=== PATIENT | male | born 1960 | race Caucasian/White ===

== ENCOUNTER → 2016-09-25 | Outpatient (CLI) | payer BC ==
[~2016-09-25] MED LIST: CARV25TA2 PO; DIGO0.1267 PO; FURO40TA3 PO; LOSA100T65 PO; SPIR50TA3 PO; WARF2.5T8 PO; WARF5TAB7 PO
[2016-09-25 17:36] LABS: HEMATOCRIT 40.3 % (42-52); MEAN CELL VOLUME 87.6 fL (80-100); MEAN CORPUSCULAR HEMOGLOBIN 31.3 pg (25-34); MEAN CORPUSCULAR HGB CONC 35.7 g/dl (32-36); MEAN PLATELET VOLUME 10.7 fL (7.4-10.4); PLATELET COUNT 254 K/uL (130-400); WHITE BLOOD COUNT 5.98 K/uL (4.8-10.8)
[2016-09-25 17:49] LABS: BLOOD UREA NITROGEN 17 mg/dl (7-18); BUN/CREATININE RATIO 19.2 (10-20); CALCIUM 8.2 mg/dl (8.5-10.1); CARBON DIOXIDE 23 mmol/L (21-32); CHLORIDE 105 mmol/L (98-107); CREATININE 0.87 mg/dl (0.60-1.40); GLUCOSE 98 mg/dl (70-99); POTASSIUM 4.2 mmol/L (3.5-5.1); SODIUM 138 mmol/L (136-145)
== END | disposition home or self-care (01) ==
LOC: C.LABBFT 12:21
PROVIDERS: ATTEND Internal Medicine Cardiovascular Disease
DX: I42.9 Cardiomyopathy, unspecified (principal); Z79.01 Long term (current) use of anticoagulants; I48.0 Paroxysmal atrial fibrillation; I50.22 Chronic systolic (congestive) heart failure

== ENCOUNTER → 2016-10-11 | Outpatient (CLI) | payer BC ==
[2016-10-11 12:44] LABS: BLOOD UREA NITROGEN 25 mg/dl (7-18); BUN/CREATININE RATIO 24.9 (10-20); CALCIUM 8.6 mg/dl (8.5-10.1); CARBON DIOXIDE 27 mmol/L (21-32); CHLORIDE 100 mmol/L (98-107); GLUCOSE 101 mg/dl (70-99); POTASSIUM 4.2 mmol/L (3.5-5.1); SODIUM 134 mmol/L (136-145)
== END | disposition home or self-care (01) ==
LOC: C.LABBFT 10:21
PROVIDERS: ATTEND Internal Medicine Cardiovascular Disease
DX: I42.9 Cardiomyopathy, unspecified (principal); I47.2 Ventricular tachycardia; Z79.01 Long term (current) use of anticoagulants; I50.22 Chronic systolic (congestive) heart failure

== ENCOUNTER → 2017-01-20 | Outpatient (CLI) | payer BC ==
[2017-01-20 12:51] LABS: HEMATOCRIT 44.5 % (42-52); MEAN CELL VOLUME 88.5 fL (80-100); MEAN CORPUSCULAR HEMOGLOBIN 31.4 pg (25-34); MEAN CORPUSCULAR HGB CONC 35.5 g/dl (32-36); MEAN PLATELET VOLUME 10.8 fL (7.4-10.4); PLATELET COUNT 255 K/uL (130-400); RED BLOOD COUNT 5.03 M/uL (4.7-6.1)
[2017-01-20 13:04] LABS: CALCIUM 8.8 mg/dl (8.5-10.1)
[2017-01-20 13:05] LABS: BLOOD UREA NITROGEN 18 mg/dl (7-18); CARBON DIOXIDE 28 mmol/L (21-32); CHLORIDE 104 mmol/L (98-107); CREATININE 0.97 mg/dl (0.60-1.40); GLUCOSE 101 mg/dl (70-99); POTASSIUM 4.1 mmol/L (3.5-5.1); SODIUM 139 mmol/L (136-145)
== END | disposition home or self-care (01) ==
LOC: C.LAB 10:02
PROVIDERS: ATTEND Internal Medicine Cardiovascular Disease
DX: I42.9 Cardiomyopathy, unspecified (principal); I47.2 Ventricular tachycardia; I50.22 Chronic systolic (congestive) heart failure; Z79.01 Long term (current) use of anticoagulants

== ENCOUNTER → 2017-04-10 | Outpatient (CLI) | payer BC ==
[2017-04-10 13:24] LABS: BLOOD UREA NITROGEN 21 mg/dl (7-18); BUN/CREATININE RATIO 20.5 (10-20); CALCIUM 8.2 mg/dl (8.5-10.1); CARBON DIOXIDE 26 mmol/L (21-32); CHLORIDE 106 mmol/L (98-107); GLUCOSE 99 mg/dl (70-99); POTASSIUM 4.5 mmol/L (3.5-5.1); SODIUM 137 mmol/L (136-145)
== END | disposition home or self-care (01) ==
LOC: C.LABBFT 07:47
PROVIDERS: ATTEND Internal Medicine Cardiovascular Disease
DX: Z79.01 Long term (current) use of anticoagulants (principal); I48.0 Paroxysmal atrial fibrillation

== ENCOUNTER → 2017-05-20 | Outpatient (CLI) | payer BC ==
[~2017-05-20] VITALS: Ht 174 cm; Wt 82.0 kg
[2017-05-20 16:34] VITALS: BP 98/68; PULSE 69; Ht 174 cm; Wt 82.0 kg
== END | disposition home or self-care (01) ==
LOC: C.NEUR 14:55
PROVIDERS: ATTEND Internal Medicine Pulmonary Disease
DX: G47.00 Insomnia, unspecified (principal); G47.9 Sleep disorder, unspecified; I48.0 Paroxysmal atrial fibrillation; I50.22 Chronic systolic (congestive) heart failure; I42.9 Cardiomyopathy, unspecified

== ENCOUNTER → 2017-06-10 | Outpatient (CLI) | payer BC ==
--- NOTE | 2017-06-11 06:51 | PAP/PSG TECHNICIAN REPORT ---
[facility] Survey Technologist Polysomnogram Report Study name: None Report date: 06/11/2017 Study date: 06/10/2017 Referring Physician: DR. PADRON Name: INDER LOO Interpreting Physician: Taurus Padron M.D. Date of : 1960 Survey Technologist: Jake Huff RPSGT. 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 HE ALSO HAS A DEFIBRILLATOR. HE IS HERE TODAY FOR AN EVALUATION FOR [facility]. ESS = 19 RM 8 Parameters Monitored NPSG: E1-M2, E2-M1, Fp1-M2, Fp2-M1, F3-M2, F4-M2, F4-M1, C3-M2, C4-M2, C4-M1, O1-M2, O2-M2, O2-M1, T3-M2, T4-M1, P3-M2, P4-M1, CHIN1, CHIN2, HR, EKG, Legs, PFLOW, SNOR, FLOW, CFLOW, Tidal Volume, THOR, ABDO, SpO2, PLTH, CPRESS, ETCO2 Wave, ETCO2, pH Sleep Architecture Sleep Stages Time at Lights Off 9:32:01 PM STAGES Time (min.) TST (%) Time at Lights On 5:22:01 AM Wake 52.5 -- Total Recording Time (TRT) 470.50 min. N1 23.0 6 Total Sleep Period (TSP) 457.5 min. N2 330.5 79 Total Sleep Time (TST) 417.5min. N3 7.0 2 Awake Time 53.0 min. REM 57.0 14 Wake after Sleep Onset 40.5 min. Sleep Efficiency (SE) 89 % Sleep Onset Latency (NHUNG) 12.0 min. Number of Stage 1 Shifts None Awakenings 18 Stage Changes 84 Number of REM periods 5 REM 57.0 14 REM Latency 184.0 min. NREM 360.5 86 Body Position Analysis Supine Right Left Side Prone Vertical Total Sleep Time (min.) 93.7 172.9 145.5 318.39 33.6 0.0 Total Sleep Time (%) 18% 41% 35% 76 6% N/A% Total Sleep Time REM (min.) 0.0 53.0 4.0 None 0.0 0.0 Total Sleep Time NREM (min.) 75.8 119.9 141.5 None 23.4 0.0 Intermittent Wake (min.) 18.0 16.8 7.5 None 10.3 0.0 Total Sleep Period (%) 18% None None None None None Arousals Myoclonus (PLM) * Events Count Index Events Count Index Spontaneous 23 3 Events Awake (PLMW) 107 122.3 Respiratory 7 1.0 Events Asleep w/ Arousal (PLMA) 42 6.0 PLM 41 6 Events Asleep w/o Arousal (PLMS) 376 54.0 Snoring 5 1 Total Asleep 418 60.1 Total 76 11 Total 525 67 Respiratory Analysis * CA OA MA CH H RERA Total Count 2 0 3 0 23 1 28 Index 0.3 0.0 0.4 0 3.3 0 4.2 Mean Duration 16.0 0.0 20.6 0.00 17.5 15.7 17.6 Longest Duration 20.1 0.0 26.1 0.00 26.1 15.7 31.2 Respiratory Event Summary Total Supine ~Supine Right Left Prone REM NREM Apneas Count 5 1 4 2 2 0 1 4 Index 0.7 1 1 0.7 0.8 0 1 1 Hypopneas (4% Desat) Count 23 13 10 6 4 0 2 21 Index 3.3 10.3 2 2.1 1.6 0.0 2.1 3.5 Apneas & All Hypopneas Count 28 14 14 8 6 0 3 25 Index 4.0 11 2 3 2 0 3.2 4.2 Respiratory Events (Billboard Installer+All Hyp+RERA) Count 28 15 14 8 6 0 3 25 Index 4.2 12 2 2.8 2.5 0.0 3.2 4.3 Respiratory Related Arousal Count 7 15 3 2 1 0 0 7 Index 1.0 3 1 1 0 0 0 1 Snoring Analysis Supine Right Left Prone REM NREM Total Snore duration 2.5 min Snores count 5 22 17 0 4 40 44 Snore mean duration 3.4 Sec Snores index 4 8 7 0 4.2 6.7 6.3 TST with snoring (%) 0.6% Desaturation Event Summary: Minimum %SpO2 Event Count Mean/Min/Max Duration(sec.) Desaturation Index % Time In Bed > 90 32 24.9 / 8.5 / 62.3 4.2 98.1 86 - 90 0 N/A 0.0 1.9 81 - 85 0 N/A 0.0 0.0 76 - 80 0 N/A 0.0 0.0 71 - 75 0 N/A 0.0 0.0 66 - 70 0 N/A 0.0 0.0 61 - 65 0 N/A 0.0 0.0 56 - 60 0 N/A 0.0 0.0 51 - 55 0 N/A 0.0 0.0 < 50 0 N/A 0.0 0.0 Total REM NREM Awake <50% 0.0 min. 0.0 min. 0.0 min. 0.0 min. 51 - 60% 0.0 min. 0.0 min. 0.0 min. 0.0 min. 61 - 70% 0.0 min. 0.0 min. 0.0 min. 0.0 min. 71 - 80% 0.0 min. 0.0 min. 0.0 min. 0.0 min. 81 - 90% 9.1 min. 0.2 min. 6.6 min. 2.3 min. 91 - 100% 459.6 min. 56.8 min. 353.9 min. 49.0 min. Average 93 94 93 93 Minimum SpO2 87 90 87 87 Desaturation Event Index 4.1 2.1 4.2 8.0 # Desat. Events below 89% 6 N/A 5 1 Time(%) with Saturation below 89% 0.2 0.0 0.1 0.1 Time(min.) with Saturation below 89% 0.8 0.0 0.5 0.3 Time (mins) REM (mins) NREM (mins) % of TST SpO2 Below 90% 21 1 N20 0.3 SpO2 Below 88% 2 0 0 0 Heart Rate Analysis Min (bpm) Max (bpm) Average (bpm) Awake 59 300 63 NREM 59 70 60 REM 59 73 60 Overall 59 73 60 Supplemental O2 Values Minimum O2 level: None Value Start Time End Time Survey Technologist Comments Mr. Loo slept in the right, left, supine and prone positions. PVC's noted. PLM's noted. No bruxism noted. Snoring was noted and scored as a 1 on a scale of 1 through 5. (0=no snoring, 5=snoring loud enough to be heard through a closed door or down the leung way) Mr. Loo awoke to use the restroom 0 times during the night. Mr. Loo stated I slept as well as I do when I am in my own bed. The final report will be interpreted and signed by a sleep physician. The completed physician report will then be placed in the patient medical record. Therapy (cm H2O) 0 TIB (min.) 470.0 TST (min.) 417.5 Sleep Onset (min.) 12.0 REM Onset From Sleep (min.) 184.0 Sleep Efficiency % 89 Wakefulness (%) 11 Wakefulness (min.) 53.0 NREM 1 (%) 6 NREM 1 (min.) 23.0 NREM 2 (%) 79 NREM 2 (min.) 330.5 NREM 3 (%) 2 NREM 3 (min.) 7.0 REM (%) 14 REM (min.) 57.0 # Arousals 76 Arousal Index 11 # Snore 44 Snore Index 6.3 AHI 4.0 AHI Supine 11 AHI Non-Supine 2 NREM AHI 4.2 REM AHI 3.2 RDI 4.2 # Obstructive Apnea 0 # Central Apnea 2 # Mixed Apnea 3 # Hypopneas 23 RERAs 1 Total Respiratory Events 33 Time Below SpO2 89% (min.) 0.5 Mean NREM SpO2 (%) 93 Mean REM SpO2 (%) 94 Mean Sleep SpO2 (%) 93 Min NREM SpO2 (%) 87 Min REM SpO2 (%) 90 Position Supine (min.) 93.7 Position Non-supine (min.) 341.7 LM Index Sleep 60.1 LM Index NREM 65.7 LM Index REM 24.2 Mean Heart Rate (bpm) 60 Min Heart Rate (bpm) 59
--- NOTE | 2017-06-12 15:17 | POLYSOMNOGRAPH REPORT ---
CLINICAL DATA: A 57-year-old male with BMI of 27.[address] Linton and myself for evaluation for possible sleep apnea. He has frequent nocturnal awakenings, insomnia, and fatigue. His Spring sleepiness score is 19/24. SLEEP ARCHITECTURE: Total sleep period was 457.5 minutes. Total sleep time was 417.5 minutes divided between 360.5 minutes of non-REM sleep and 57 minutes of REM sleep. Sleep onset latency was 12 minutes. REM latency was delayed at 184 minutes. Sleep efficiency was 89%. Wake after sleep onset was 40.5 minutes. Sleep consisted of stage N1 6%, stage N2 79%, stage N3 2%, and REM 14%. AROUSAL DATA: 76 arousals recorded for an index of 11 per hour. 41 were due PLM events. PLM DATA: Severe PLMD was noted. There were 418 limb movements during sleep noted for an index of 60 per hour with arousal index of 6 per hour. RESPIRATORY DATA: There was no evidence of clinically significant sleep apnea/hypopnea seen. The AHI was 4. There were 2 central and 3 mixed apneic episodes. The longest duration of apnea was 26.1 seconds. There were 23 hypopneic episodes. The mean duration of hypopnea was 17.5 seconds. OXIMETRY DATA: No significant hypoxemia was seen. Oxygen shannon was 87% during non-REM sleep. The mean saturation was 92%. Time below 88% was 2 minutes. EKG: Heart rates ranged from 59-73 beats per minute. PVCs were noted. AMUSEMENT PARK WORKER'S COMMENTS: The patient slept in the right, left, supine, and prone positions. Snoring was mild, rated 1 on a scale of 1-5. IMPRESSION: No evidence of clinically significant sleep apnea/hypopnea or nocturnal hypoxemia. The patient did have very frequent limb movements during sleep causing arousal consistent with periodic limb movement disorder of sleep. RECOMMENDATIONS: The patient should be evaluated for reversible causes of PLMD/RLS. Treatment for PLMD or RLS may be of benefit. MTDD
== END | disposition home or self-care (01) ==
LOC: C.NEUR 20:00
PROVIDERS: ATTEND Internal Medicine Pulmonary Disease
DX: I42.9 Cardiomyopathy, unspecified (principal); I50.22 Chronic systolic (congestive) heart failure; G47.00 Insomnia, unspecified; I48.0 Paroxysmal atrial fibrillation; G47.9 Sleep disorder, unspecified

== ENCOUNTER 2017-08-27 21:47 | Emergency (ER) | payer BC ==
[~2017-08-27] VITALS: Ht 175.3 cm; Wt 79.7 kg
[2017-08-27 21:48] VITALS: TEMP 36.6; Ht 175.3 cm; Wt 79.7 kg
[2017-08-27] MEDS ORDERED: SODIUM CHLORIDE 0.9% 500ML 500 ML IV STA ×2 (22:18→23:08)
[2017-08-27] MEDS ORDERED: RQP25 PO (22:21)
[2017-08-27] MEDS ORDERED: WARF-246 PO (22:21)
[2017-08-27] MEDS ORDERED: LSX40 PO (22:21)
[2017-08-27] MEDS ORDERED: CRG25 PO (22:21)
[2017-08-27] MEDS ORDERED: SACU1TAB4 PO (22:21)
[2017-08-27] MEDS ORDERED: LNX125 PO (22:21)
[2017-08-27] MEDS ORDERED: LIDOCAINE HCL 2% VISC SOLN 20 ML UDC PO STA (22:23)
[2017-08-27] MEDS ORDERED: ALUMINUM/MAGNESIUM SUSP 30 ML UDC PO STA (22:23)
[2017-08-27] MEDS ORDERED: CMD5 PO (22:25)
[2017-08-27 22:36] VITALS: O2SAT 98
[2017-08-27 22:43] LABS: BASO % 0.4 %; BASO ABS # 0.03 K/uL (0-0.2); EOS % 1.2 %; EOS ABS # 0.09 K/uL (0-0.5); HEMATOCRIT 37.5 % (42-52); HEMOGLOBIN 13.5 g/dL (14.0-18.0); IG# 0.03 K/uL (0.00-0.02); LYMPH % 16.4 %; LYMPH ABS # 1.25 K/uL (1.2-3.4); MEAN CELL VOLUME 87.4 fL (80-100); MEAN CORPUSCULAR HEMOGLOBIN 31.5 pg (25-34); MEAN PLATELET VOLUME 9.7 fL (7.4-10.4); MONO % 7.5 %; MONO ABS # 0.57 K/uL (0.11-0.59); NEUT % 74.1 %; NEUT ABS # 5.65 K/uL (1.4-6.5); PLATELET COUNT 265 K/uL (130-400); RED CELL DISTRIBUTION WIDTH CV 12.8 % (11.5-14.5); RED CELL DISTRIBUTION WIDTH SD 40.9 fL (36.4-46.3); WHITE BLOOD COUNT 7.62 K/uL (4.8-10.8)
[2017-08-27 23:02] LABS: ALBUMIN 3.4 gm/dl (3.4-5.0); ALT/SGPT 45 U/L (12-78); AST/SGOT 60 U/L (15-37); BLOOD UREA NITROGEN 37 mg/dl (7-18); CALCIUM 7.9 mg/dl (8.5-10.1); CARBON DIOXIDE 23 mmol/L (21-32); CREATININE 1.57 mg/dl (0.60-1.40); GLUCOSE 106 mg/dl (70-99); LIPASE 124 U/L (73-393); POTASSIUM 4.2 mmol/L (3.5-5.1); SODIUM 142 mmol/L (136-145)
--- NOTE | 2017-08-27 23:02 | DIAGNOSTIC IMAGING REPORT ---
CHEST ONE VIEW PORTABLE CLINICAL HISTORY: Chest pain. COMPARISON STUDY: Chest radiograph November 21, 2014. FINDINGS: A dual lead left subclavian pacer/AICD is in place. Mild cardiomegaly is noted without evidence of pulmonary edema. There is no consolidation to suggest pneumonia. Minimal left basilar opacity suggests atelectasis. Lung volumes are at the lower limits of normal. IMPRESSION: No acute cardiopulmonary findings. Electronically signed by: Connor Rush M.D. 08/27/2017 11:01 PM Dictated Date/Time: 08/27/2017 11:00 PM
[2017-08-27 23:05] LABS: ALKALINE PHOSPHATASE 66 U/L (45-117); CKMB 1.2 ng/ml (0.5-3.6); TOTAL PROTEIN 7.1 gm/dl (6.4-8.2)
[2017-08-27 23:14] LABS: INR 6.1 (0.9-1.1); PTT PATIENT 62.9 SECONDS (21.0-31.0)
--- NOTE | 2017-08-28 01:23 | EMERGENCY ROOM VISIT NOTE ---
ED Visit Note First contact with patient: 22:16 I have personally seen and evaluated the patient with the PA. I agree with the diagnosis and management decisions and have been personally involved in the case. Please see Michaelle Laguerre PA-C's notes for further details of the history, physical and visit.
[2017-08-28 01:34] VITALS: BP 93/56; PULSE 61; O2SAT 96
--- NOTE | 2017-08-28 03:41 | EMERGENCY ROOM VISIT NOTE ---
History First contact with patient: 22:16 Chief Complaint: CHEST PAIN Stated Complaint: CHEST PAIN BETWEEN SHOULDER BLADES Nursing Triage Summary: midsternal cp History of Present Illness The patient is a 57 year old male who presents to the Emergency Room with complaints of epigastric discomfort after eating a large Icelandic sandwich tonight. Patient states the past 3 days he has had a diarrheal illness and has seemed to taper down off today. He had one episode this morning and none since. He has not been eating much. He was feeling slightly nauseous but this is also resolved. Patient has extensive heart history of positive Dr. Timmons. He has a history of cardiac myopathy with stage III heart failure with A. fib and a defib and the pacemaker. Patient denies chest pain, dyspnea, vomiting, back pain, urinary symptoms, fever, chills, cough, congestion. No recent antibiotics. He describes the pain as discomfort, 5 out of 10 to the epigastric region. He still has his gallbladder. It does not radiate. Patient has not been eating much the past few days secondary to his diarrheal illness that has now tapered off. Review of Systems See HPI for pertinent positives & negatives. A total of 10 systems reviewed and were otherwise negative. Past Medical/Surgical History Medical Problems: (1) Atrial Fibrillation (2) Fam Hx-Mal Neop-Prostate (3) Hyperlipidemia Nec/Nos (4) Prim Cardiomyopathy Nec Family History Cancer Heart disease Hypertension Social History Smoking Status: Never Smoker Marital Status: Housing Status: lives with family Occupation Status: employed Current/Historical Medications Scheduled Carvedilol (Carvedilol), 25 MG PO BID Digoxin (Digoxin), 0.125 MG PO QPM Furosemide (Furosemide), 40 MG PO QAM Ropinirole HCl (Ropinirole HCl), 0.25 MG PO QPM Sacubitril-Valsartan (Entresto 97-103 mg), 1 TAB PO BID Spironolactone (Aldactone), 50 MG PO QAM Warfarin Sod (Coumadin), 25 MG PO [id number] Warfarin Sodium (Warfarin Sodium), 5 MG PO [id number] Physical Exam Vital Signs Date Time Temp Pulse Resp B/P (MAP) Pulse Ox O2 Delivery O2 Flow Rate FiO2 08/28/17 01:34 61 18 93/56 96 08/28/17 00:22 70 16 106/ 96 Room Air 08/27/17 23:29 69 24 99/54 96 Room Air 08/27/17 22:36 98 Room Air 08/27/17 22:32 68 08/27/17 22:23 94 Room Air 08/27/17 21:48 36.6 74 20 104/69 94 Room Air Physical Exam VITALS: Vitals are noted on the nurse's note and reviewed by myself. Vital signs stable. GENERAL: Pleasant male, in no acute distress, nondiaphoretic, well-developed well-nourished. SKIN: The skin was without rashes, erythema, edema, or bruising. There is no tenting of the skin. Capillary reflex less than 2 seconds. HEAD: Normocephalic atraumatic. EARS: External auditory canals clear, tympanic membranes pearly newsome without erythema or effusion bilaterally. EYES: Pupils equal round and reactive to light and accommodation. Conjunctivae without injection, sclerae without icterus. Extraocular movements intact. NOSE: Patent, turbinates without inflammation or discharge. No sinus tenderness. MOUTH: Mucous membranes mildly dry. Pharynx without erythema or exudate. Uvula midline. Airway patent. Tongue does not deviate. NECK: Supple without nuchal rigidity. No lymphadenopathy. No thyromegaly. Cervical spine is nontender. No JVD. HEART: Regular rate and rhythm LUNGS: Clear to auscultation bilaterally without wheezes, rales or rhonchi. No dullness to percussion. No retractions or accessory muscle use. ABDOMEN: Positive bowel sounds x 4. Normal tympanic percussion. Soft, minimally tender epigastric region, no CVA tenderness, without masses or organomegaly. Adames sign negative. No guarding or rebound tenderness. MUSCULOSKELETAL: No muscle atrophy, erythema, or edema noted. NEURO: Patient was alert and oriented to person place and time. Normal sensation to light and sharp touch. No focal neurological deficits. Medical Decision & Procedures Laboratory Results 08/27/17 22:20 Red Blood Count 4.29, Mean Corpuscular Volume 87.4, Mean Corpuscular Hemoglobin 31.5, Mean Corpuscular Hemoglobin Concent 36.0, Mean Platelet Volume 9.7, Neutrophils (%) (Auto) 74.1, Lymphocytes (%) (Auto) 16.4, Monocytes (%) (Auto) 7.5, Eosinophils (%) (Auto) 1.2, Basophils (%) (Auto) 0.4, Neutrophils # (Auto) 5.65, Lymphocytes # (Auto) 1.25, Monocytes # (Auto) 0.57, Eosinophils # (Auto) 0.09, Basophils # (Auto) 0.03 08/27/17 22:20 Test 08/27/17 22:20 08/27/17 22:33 White Blood Count 7.62 K/uL (4.8-10.8) Red Blood Count 4.29 M/uL (4.7-6.1) Hemoglobin 13.5 g/dL (14.0-18.0) Hematocrit 37.5 % (42-52) Mean Corpuscular Volume 87.4 fL (80-100) Mean Corpuscular Hemoglobin 31.5 pg (25-34) Mean Corpuscular Hemoglobin Concent 36.0 g/dl (32-36) Platelet Count 265 K/uL (130-400) Mean Platelet Volume 9.7 fL (7.4-10.4) Neutrophils (%) (Auto) 74.1 % Lymphocytes (%) (Auto) 16.4 % Monocytes (%) (Auto) 7.5 % Eosinophils (%) (Auto) 1.2 % Basophils (%) (Auto) 0.4 % Neutrophils # (Auto) 5.65 K/uL (1.4-6.5) Lymphocytes # (Auto) 1.25 K/uL (1.2-3.4) Monocytes # (Auto) 0.57 K/uL (0.11-0.59) Eosinophils # (Auto) 0.09 K/uL (0-0.5) Basophils # (Auto) 0.03 K/uL (0-0.2) RDW Standard Deviation 40.9 fL (36.4-46.3) RDW Coefficient of Variation 12.8 % (11.5-14.5) Immature Granulocyte % (Auto) 0.4 % Immature Granulocyte # (Auto) 0.03 K/uL (0.00-0.02) Prothrombin Time 62.1 SECONDS (9.0-12.0) Prothromb Time International Ratio 6.1 (0.9-1.1) Activated Partial Thromboplast Time 62.9 SECONDS (21.0-31.0) Partial Thromboplastin Ratio 2.4 Anion Gap 7.0 mmol/L (3-11) Est Creatinine Clear Calc Drug Dose 50.7 ml/min Estimated GFR () 55.1 Estimated GFR (Non- 47.5 BUN/Creatinine Ratio 23.3 (10-20) Calcium Level 7.9 mg/dl (8.5-10.1) Magnesium Level 2.2 mg/dl (1.8-2.4) Total Bilirubin 0.7 mg/dl (0.2-1) Direct Bilirubin 0.2 mg/dl (0-0.2) Aspartate Amino Transf (AST/SGOT) 60 U/L (15-37) Alanine Aminotransferase (ALT/SGPT) 45 U/L (12-78) Alkaline Phosphatase 66 U/L (45-117) Total Creatine Kinase 68 U/L (39-308) Creatine Kinase MB 1.2 ng/ml (0.5-3.6) Creatine Kinase MB Ratio 1.8 (0-3.0) Troponin I < 0.015 ng/ml (0-0.045) Total Protein 7.1 gm/dl (6.4-8.2) Albumin 3.4 gm/dl (3.4-5.0) Lipase 124 U/L (73-393) Digoxin Level 0.7 ng/ml (0.8-2.0) Bedside Troponin I < 0.030 ng/ml (0-0.045) Medications Administered Medications (Trade) Dose Ordered Sig/Zara Route Start Time Stop Time Status Last Admin Dose Admin Sodium Chloride 500 ml @ 999 mls/hr Q31M STAT IV 08/27/17 22:18 08/27/17 22:50 DC 08/27/17 22:18 999 MLS/HR Lidocaine HCl (Viscous Lidocaine 2% Soln) 10 ml NOW STAT PO 08/27/17 22:23 08/27/17 22:24 DC 08/27/17 22:35 10 ML Al Hydroxide/Mg Hydroxide (Maalox Susp) 30 ml NOW STAT PO 08/27/17 22:23 08/27/17 22:24 DC 08/27/17 22:35 30 ML Sodium Chloride 500 ml @ 999 mls/hr Q31M STAT IV 08/27/17 23:08 08/27/17 23:38 DC 08/27/17 23:08 999 MLS/HR ED Course Prior records/ancillary studies reviewed. Triage Nursing notes reviewed. Additional history obtained from family. The patient's history was concerning for abdominal pain. Differential diagnosis: Etiologies such as appendicitis, diverticulitis, PUD, biliary pathology, UTI, pancreatitis, obstruction, mesenteric ischemia, aortic pathology, infections, inflammatory bowel disease, renal colic, as well as others were entertained. Physical examination findings: As above. ER treatment provided: GI cocktail On reassessment the patient felt better. Diagnostics interpreted by me: ECG: Normal sinus, incomplete right bundle-branch block, T-wave inversions in lead 1 and aVL, rate of 72, EKG compared to prior EKG with no acute changes noted. Impression normal sinus rhythm with incomplete right bundle branch block with T-wave inversions in the anterior leads interpreted by myself unchanged from prior The labs revealed supratherapeutic INR. Slightly elevated creatinine. Negative troponin 2 greater than 2 hours apart Imaging studies: [~ rep ct add3]] CHEST ONE VIEW PORTABLE CLINICAL HISTORY: Chest pain. COMPARISON STUDY: Chest radiograph November 21, 2014. FINDINGS: A dual lead left subclavian pacer/AICD is in place. Mild cardiomegaly is noted without evidence of pulmonary edema. There is no consolidation to suggest pneumonia. Minimal left basilar opacity suggests atelectasis. Lung volumes are at the lower limits of normal. IMPRESSION: No acute cardiopulmonary findings. US GALLBLADDER: Small gallbladder polyps or adherent stones. No gallbladder wall thickening. Common bile duct within normal limits. Negative sonographic Adames's sign. Pancreas not visualized. Radiologist: Julieta Grover M.D. Exam and history seem consistent with epigastric discomfort most likely related to gastritis. Patient had a large meal and has not been eating much the last few days right before symptoms occurred. He felt much better after the GI cocktail. His INR was supratherapeutic. He was advised to hold his Coumadin today and take a half dose tomorrow and recheck his INR 1 week with his family doctor. His creatinine was higher than baseline. He was dehydrated. He was gently hydrated as above as he has a history of CHF. He was advised also recheck his creatinine in a week to make sure this is improving. Patient had 2 negative troponins greater than 2 hours apart. Unchanged EKG. He was well- appearing. His symptoms resolved after the GI cocktail. He is advised take Maalox or Zantac for early acute symptoms and to follow-up with his family care doctor in a few days or here in the ER sooner for abdominal pain, chest pain, difficulty breathing, worsening signs or symptoms or as needed. Patient did not have acute abdomen on exam. He is well-appearing. He had no active bleeding. Patient states his blood pressure normally runs low and this is baseline for him. He was asymptomatic. He was not lightheaded or dizzy. By the evaluation outlined above emergent etiologies such as appendicitis, diverticulitis, PUD, biliary pathology, UTI, pancreatitis, obstruction, mesenteric ischemia, aortic pathology, infections, inflammatory bowel disease, renal colic, as well as others were deemed relatively unlikely. The pt informed about the findings as listed above. All questions were answered and pleased with the treatment. Return instructions were outlined and the patient was discharged in stable condition. Case reviewed with my attending Referral: The patient was referred back to their primary care physician for follow-up in 2 to 3 days for a recheck of the current condition. The chart was completed utilizing [employer] Speech voice recognition software. Grammatical errors, random word insertions, pronoun errors, and incomplete sentences are an occassional consequence of this system due to software limitations, ambient noise, and hardware issues. Any formal questions or concerns about the content, text, or information contained within the body of this dictation should be directly addressed to the physician psychiatric assistant for clarification. Medical Decision As above Medication Reconcilliation Current Medication List: was personally reviewed by me Blood Pressure Screening Patient's blood pressure: Low blood pressure Blood pressure disposition: Referred to PCP Impression Primary Impression: Epigastric abdominal pain Additional Impressions: Supratherapeutic INR Dehydration Departure Information Dispostion Home / Self-Care Condition GOOD Forms Call Back Authorization, HOME CARE DOCUMENTATION FORM, IMPORTANT VISIT INFORMATION Patient Instructions My [facility] Additional Instructions Hold your Coumadin today which is . Friday take your 2.5 mg dose. Then resume your normal schedule. Your INR is 6.1 today. Recheck this in 1 week. Your creatinine/BUN: 1.57/37 today. Recheck this also in 1 week. You can take Pepto-Bismol or Maalox for upset stomach. This is over-the- counter. Too much Pepto-Bismol can turn your stool and tongue black. Rest and drink plenty of fluids as tolerated. Slow sips of water or sports drinks are recommended instead of large amounts all at once. Continue current medications. Once your stomach is settled start with a clear liquid diet (jello, soup broth, etc.) and then advance as tolerated. You should avoid full, heavy meals for about 24 hrs from the time your symptoms resolved. Return to the ER for persistent vomiting, fevers, abdominal pain, chest pains, difficulty breathing, black or bloody stools, worsening of your condition, or as needed. Follow up with your primary physician in 2-3 days for a recheck of your current condition. Problem Qualifiers
--- NOTE | 2017-08-28 06:57 | DIAGNOSTIC IMAGING REPORT ---
BILIARY ULTRASOUND CLINICAL HISTORY: ] Quadrant abdominal pain COMPARISON STUDY: None FINDINGS: The pancreas was nonvisualized. The liver appears sonographically normal. There was no ductal dilatation. The common bile duct measures 3 mm. There is no right-sided hydronephrosis. A few tiny echogenic foci were visualized in the gallbladder. These did not move or shadow favoring tiny polyps over calculi. IMPRESSION: 1. Suspected tiny gallbladder polyps. 2. No evidence of ductal dilatation. 3. Nondiagnostic evaluation of the pancreas Electronically signed by: Ceasar Quan M.D. 08/28/2017 6:56 AM Dictated Date/Time: 08/28/2017 6:54 AM
== END 2017-08-28 01:36 | disposition home or self-care (01) ==
LOC: C.EDB 21:48 → C.EDC 08-28 01:36
DX: R10.13 Epigastric pain (principal); E86.0 Dehydration; Z79.01 Long term (current) use of anticoagulants; I48.91 Unspecified atrial fibrillation; E78.5 Hyperlipidemia, unspecified; I42.9 Cardiomyopathy, unspecified; Z80.42 Family history of malignant neoplasm of prostate; Z79.899 Other long term (current) drug therapy; Z80.9 Family history of malignant neoplasm, unspecified; Z82.49 Family history of ischemic heart disease and other diseases of the circulatory system

== ENCOUNTER → 2017-09-04 | Outpatient (CLI) | payer BC ==
[2017-09-04 16:23] LABS: GLUCOSE 100 mg/dl (70-99)
[2017-09-04 16:23] LABS: BLOOD UREA NITROGEN 19 mg/dl (7-18); BUN/CREATININE RATIO 17.3 (10-20); CALCIUM 8.4 mg/dl (8.5-10.1); CARBON DIOXIDE 26 mmol/L (21-32); CHLORIDE 104 mmol/L (98-107); CREATININE 1.08 mg/dl (0.60-1.40); EstGFR CKD-E AfrAm 86.6; EstGFR CKD-E NON AfrAm 74.7; POTASSIUM 4.4 mmol/L (3.5-5.1); SODIUM 135 mmol/L (136-145)
== END | disposition home or self-care (01) ==
LOC: C.LAB1850 14:43
DX: I50.22 Chronic systolic (congestive) heart failure (principal)